=== PATIENT | female | born 1975 | race Caucasian/White ===

== ENCOUNTER 2020-08-16 07:14 | Outpatient (CLI) | payer BC | END 2020-08-16 07:15 | disposition home or self-care (01) | LOC: CSHCT 07:14 | PROVIDERS: ATTEND Internal Medicine Hematology & Oncology | DX: C50.112 Malignant neoplasm of central portion of left female breast (principal); C79.31 Secondary malignant neoplasm of brain; Z98.890 Other specified postprocedural states | CPT/HCPCS: 71260; 74177; 78306; A9503 ==

== ENCOUNTER 2021-09-20 08:36 | Outpatient (CLI) | payer BC ==
[2021-09-20] MEDS ORDERED: Magnevist 469MG/ML 20 ML VIAL ONE (09:16)
== END 2021-09-20 08:37 | disposition home or self-care (01) ==
LOC: CSHMRI 08:36
PROVIDERS: ATTEND Internal Medicine Hematology & Oncology
DX: C50.919 Malignant neoplasm of unspecified site of unspecified female breast (principal); C79.31 Secondary malignant neoplasm of brain
CPT/HCPCS: 70553

== ENCOUNTER 2021-11-08 08:46 | Outpatient (CLI) | payer BC ==
[~2021-11-08 08:46] MED LIST: Gadobenate Dimeglumine 529 MG/1 ML (20ML VIAL) ONE; Iopamidol 300 61% 100 ML VIAL FS ONE
== END 2021-11-08 08:47 | disposition home or self-care (01) ==
LOC: CSHCT 08:46
PROVIDERS: ATTEND Internal Medicine Hematology & Oncology
DX: C50.919 Malignant neoplasm of unspecified site of unspecified female breast (principal); C79.31 Secondary malignant neoplasm of brain; R91.8 Other nonspecific abnormal finding of lung field
CPT/HCPCS: 70553; 71260; 74177; A9577; Q9967

== ENCOUNTER 2023-03-27 09:21 | Outpatient (CLI) | payer BC ==
[2023-03-27] MEDS ORDERED: Iopamidol 300 61% 100 ML VIAL FS ONE (14:08)
== END 2023-03-27 09:22 | disposition home or self-care (01) ==
LOC: CSHCT 09:21
PROVIDERS: ATTEND Internal Medicine Hematology & Oncology
DX: C50.919 Malignant neoplasm of unspecified site of unspecified female breast (principal); C79.31 Secondary malignant neoplasm of brain; R91.8 Other nonspecific abnormal finding of lung field; R93.89 Abnormal findings on diagnostic imaging of other specified body structures; K80.20 Calculus of gallbladder without cholecystitis without obstruction
CPT/HCPCS: 71260; 74177